=== PATIENT | female | born 1955 | race Asian ===

== ENCOUNTER 2016-11-13 11:27 | Emergency (ER) | payer OTHER ==
[~2016-11-13] VITALS: Ht 152.4 cm; Wt 45.9 kg
[~2016-11-13 11:27] MED LIST: OMEP20TA2 PO; TRAM100T27 PO
[2016-11-13] MEDS ORDERED: ZOLP10 PO (11:39)
[2016-11-13] MEDS ORDERED: IBUP-2070 PO (11:39)
[2016-11-13] MEDS ORDERED: NAPR-58 PO (11:39)
[2016-11-13] MEDS ORDERED: [UNRECOGNIZED DRUG - CODE] PO (11:39)
[2016-11-13] MEDS ORDERED: TraMADol HCL 50 MG TABLET PO ONE (13:30)
[2016-11-13 14:25] VITALS: BP 143/81
== END 2016-11-13 14:49 | disposition home or self-care (01) ==
LOC: EMS 11:29
DX: S09.90XA Unspecified injury of head, initial encounter (principal); M54.2 Cervicalgia; W18.39XA Other fall on same level, initial encounter; Y93.89 Activity, other specified; Y92.89 Other specified places as the place of occurrence of the external cause; Y99.8 Other external cause status
CPT/HCPCS: 70450; 72125; 99284

== ENCOUNTER 2016-11-16 15:46 | Inpatient (IN) | payer OTHER ==
[~2016-11-16] VITALS: Ht 152.4 cm; Wt 46.7 kg
[~2016-11-16 15:46] MED LIST changes: +IBUP-2070 PO; +NAPR-58 PO; +ZOLP10 PO; +[UNRECOGNIZED DRUG - CODE] PO
[2016-11-16] MEDS ORDERED: TRAM50TA4 PO (15:57)
[2016-11-16] MEDS ORDERED: ONDANSETRON HCL 4 MG TABLET PO ONE (18:45)
[2016-11-16] MEDS ORDERED: ONDANSETRON HCL 4 MG/2 ML VIAL IVP PRN (21:15)
[2016-11-16] MEDS ORDERED: 0.9% SODIUM CHLORIDE 10 ML SYRINGE IVP PRN (21:15)
[2016-11-16] MEDS ORDERED: MORPHINE SULFATE 2 MG/ML SYRINGE IVP PRN (21:15)
[2016-11-16] MEDS ORDERED: ACETAMINOPHEN 325 MG TABLET PO PRN ×2 (21:15→21:30)
[2016-11-16] MEDS ORDERED: OxyCODONE HCL/ACETAMINOPHEN 5-325 MG TABLET PO PRN ×2 (21:15→21:30)
[2016-11-16] MEDS ORDERED: MAGNESIUM HYDROXIDE SUSPENSION 30 ML UDCUP PO PRN (21:30)
[2016-11-16] MEDS ORDERED: ALBUTEROL SULFATE 2.5 MG/0.5 ML NEB SOLUTION NEB PRN (21:30)
[2016-11-16 21:35] LABS: BASOPHILS # (AUTO) 0.04 K/uL (0.00-0.20); BASOPHILS % (AUTO) 0.7 % (0.0-2.0); EOSINOPHILS # (AUTO) 0.07 K/uL (0.00-0.70); EOSINOPHILS % (AUTO) 1.22 % (1.0-6.0); HEMATOCRIT 40.3 % (36-46); HEMOGLOBIN 13.8 g/dL (12.0-16.0); MEAN CORPUSCULAR HEMOGLOBIN 30.1 pg (26.0-34.0); MEAN CORPUSCULAR HGB CONC 34.4 G/dL (31.0-37.0); MEAN CORPUSCULAR VOLUME 88 fL (80-100); MONOCYTES # (AUTO) 0.5 K/uL (0.1-1.0); MONOCYTES % (AUTO) 7.3 % (2.0-9.0); NEUTROPHILS # (AUTO) 3.5 K/uL (1.8-7.7); NEUTROPHILS % (AUTO) 57.8 % (40.0-70.0); PLATELET COUNT (AUTO) 185 K/uL (150-450); RED CELL DISTRIBUTION WIDTH 13.2 % (11.5-14.5); WHITE BLOOD COUNT (AUTO) 6.1 K/uL (4.5-11.0)
[2016-11-16 21:44] LABS: APPEARANCE,URINE CLEAR (CLEAR); GLUCOSE, URINE (UA) NEGATIVE (NEGATIVE); KETONES,URINE NEGATIVE (NEGATIVE); LEUKOCYTE ESTERASE ,URINE TRACE (NEGATIVE); OCCULT BLOOD,URINE NEGATIVE (NEGATIVE); PH,URINE 7.5 (5.0-8.0); PROTEIN,URINE NEGATIVE (NEGATIVE)
[2016-11-16 21:45] LABS: ADD UA MICROSCOPIC YES
[2016-11-16 21:51] LABS: ANION GAP 8 mmol/L (8-16); CALCIUM, TOTAL 8.8 mg/dL (8.8-10.5); CARBON DIOXIDE 27 mmol/L (22-29); CHLORIDE 101 mmol/L (98-107); CREATININE 0.78 mg/dL (0.60-1.30); GLOMERULAR FILTR. RATE CALC > 60 mL/min (>60); POTASSIUM 3.5 mmol/L (3.5-5.1); SODIUM SERUM 136 mmol/L (136-145); UREA NITROGEN, BLOOD 11 mg/dL (7-18)
[2016-11-16 21:57] LABS: RBC,URINE None Seen /HPF (0-2)
[2016-11-16 22:14] LABS: ALANINE AMINOTRANSFERASE 29 U/L (12-78); ALBUMIN 3.9 g/dL (3.4-5.0); ASPARTATE AMINOTRANSFERASE 18 U/L (15-37); BILIRUBIN,TOTAL 0.6 mg/dL (0.1-1.0); CREATINE KINASE MB 0.5 ng/mL (0-5); CREATINE KINASE, TOTAL 89 U/L (26-192); TOTAL PROTEIN, SERUM 7.3 g/dL (6.4-8.2)
[2016-11-16 22:16] LABS: B-TYPE NATRIURETIC PEPTIDE 47 pg/mL (0-100)
[2016-11-16 22:46] VITALS: BP 152/90
[2016-11-16] MEDS: AmLODIPine BESYLATE 2.5 MG TABLET PO SCH (23:01)
[2016-11-17 04:05] VITALS: BP 123/80
[2016-11-17 07:28] VITALS: BP 142/79
[2016-11-17] MEDS: PANTOPRAZOLE SODIUM 40 MG DR TABLET PO SCH (08:06)
[2016-11-17] MEDS: DOCUSATE SODIUM 100 MG CAPSULE PO SCH ×2 (08:06→20:14)
[2016-11-17 11:02] VITALS: BP 120/76
[2016-11-17 14:53] VITALS: BP 133/60
[2016-11-17 19:21] VITALS: BP 123/76
[2016-11-17] MEDS: AmLODIPine BESYLATE 2.5 MG TABLET PO SCH (20:14)
[2016-11-18 00:06] VITALS: BP 102/73
[2016-11-18 04:53] VITALS: BP 115/76
[2016-11-18 07:26] VITALS: BP 117/78
[2016-11-18] MEDS: DOCUSATE SODIUM 100 MG CAPSULE PO SCH (08:30)
[2016-11-18] MEDS: PANTOPRAZOLE SODIUM 40 MG DR TABLET PO SCH (08:30)
[2016-11-18 11:56] VITALS: BP 109/73
== END 2016-11-18 16:25 | disposition home or self-care (01) | DRG 55 ==
LOC: EMS 15:47 → 5S 21:25 → 5N 11-17 17:37
PROVIDERS: ADMIT Internal Medicine; ATTEND Internal Medicine
DX: S06.5X0A Traumatic subdural hemorrhage without loss of consciousness, initial encounter (principal); I10 Essential (primary) hypertension; R20.0 Anesthesia of skin; Z91.81 History of falling
CPT/HCPCS: 70450; 70551; 93005; 99285; Q0162

== ENCOUNTER 2018-01-29 12:01 | Emergency (ER) | payer OTHER ==
[~2018-01-29] VITALS: Ht 149.9 cm; Wt 47.7 kg
[~2018-01-29 12:01] MED LIST changes: +CALC1TAB86 PO; -IBUP-2070 PO; -NAPR-58 PO; -OMEP20TA2 PO; -TRAM100T27 PO; +TRAM50TA4 PO; -ZOLP10 PO; +ZOLP10TA7 PO; -[UNRECOGNIZED DRUG - CODE] PO
[2018-01-29] MEDS ORDERED: VERA120 PO (12:15)
[2018-01-29] MEDS ORDERED: GABA-531 PO (12:15)
[2018-01-29 19:13] VITALS: BP 144/76
== END 2018-01-29 19:22 | disposition home or self-care (01) ==
LOC: EMS 12:02
DX: R51 Headache (principal); G47.00 Insomnia, unspecified; Z79.899 Other long term (current) drug therapy; Z87.820 Personal history of traumatic brain injury
CPT/HCPCS: 70450; 99284

== ENCOUNTER 2020-02-17 06:17 | Day surgery (SDC) | payer OTHER ==
[~2020-02-17] VITALS: Ht 152.4 cm; Wt 45.5 kg
[~2020-02-17 06:17] MED LIST changes: -CALC1TAB86 PO; +GABA-1181 PO; -TRAM50TA4 PO; +VERA120 PO; -ZOLP10TA7 PO
[2020-02-17] MEDS ORDERED: SODIUM CHLORIDE 0.9% 1,000 ML ONE (06:22)
[2020-02-17] MEDS ORDERED: SODIUM CHLORIDE 0.9% 1,000 ML IV ONE (06:30)
[2020-02-17 06:43] LABS: COVID AG,FIA SOURCE NASOPHARYNGEAL
[2020-02-17] MEDS ORDERED: TRAM50TA4 PO (07:05)
[2020-02-17] MEDS ORDERED: OMEP20 PO (07:05)
[2020-02-17] MEDS ORDERED: GABA-1216 PO (07:05)
[2020-02-17] MEDS ORDERED: ZOLP-280 PO (07:05)
[2020-02-17] MEDS ORDERED: TENO300 PO (07:05)
[2020-02-17] MEDS ORDERED: MIDAZOLAM HCL 2 MG/2 ML VIAL ONE (07:30)
[2020-02-17] MEDS ORDERED: FentaNYL CITRATE-PF 100 MCG/2 ML VIAL ONE (07:30)
[2020-02-17] MEDS ORDERED: MethylPREDNISolone SOD SUCC 125 MG/2 ML VIAL ONE (08:58)
[2020-02-17] MEDS ORDERED: MethylPREDNISolone SOD SUCC 125 MG/2 ML VIAL IVP ONE (09:00)
[2020-02-17] MEDS ORDERED: LIDOCAINE 4% 50 ML SOLUTION ONE (17:53)
[2020-02-17] MEDS ORDERED: LIDOCAINE 2% 30 ML JELLY ONE (17:53)
[2020-02-17] MEDS ORDERED: ALBUTEROL SULFATE 2.5 MG/0.5 ML NEB SOLUTION NEB ONE (17:53)
[2020-02-17] MEDS ORDERED: BENZOCAINE 20% 50 MCG/SPRAY 57 GM ONE (17:53)
[2020-02-17] MEDS ORDERED: OXYGEN THERAPY IH SCH (20:00)
== END 2020-02-17 10:10 | disposition home or self-care (01) ==
LOC: SURGERY 06:17
PROVIDERS: ATTEND Internal Medicine Critical Care Medicine
DX: J38.4 Edema of larynx (principal); B37.0 Candidal stomatitis
CPT/HCPCS: 31623; 31624; 71045; 87015; 87070; 87101; 87205; 87206; 87220; 87426; 93005; J2250; J2930; J3010; J7030; 88108; 88312; J7613; Z7610

== ENCOUNTER 2021-12-29 05:41 | Day surgery (SDC) | payer MEDICARE, OTHER ==
[~2021-12-29] VITALS: Ht 152.4 cm; Wt 46.3 kg
[~2021-12-29 05:41] MED LIST changes: -GABA-1181 PO; +GABA-1216 PO; +OMEP20 PO; +SODIUM CHLORIDE 0.9% 1,000 ML IV ONE; +TENO300 PO; +TRAM50TA4 PO; -VERA120 PO; +ZOLP-280 PO
[2021-12-29] MEDS ORDERED: LIDOCAINE 4% 50 ML SOLUTION TP ONE (05:42)
[2021-12-29] MEDS ORDERED: LIDOCAINE 2% 11 ML JELLY TP ONE (05:42)
[2021-12-29] MEDS ORDERED: BENZOCAINE 20% 50 MCG/SPRAY 57 GM TP ONE (05:42)
[2021-12-29] MEDS ORDERED: SODIUM CHLORIDE 0.9% 1,000 ML ONE (06:28)
[2021-12-29 06:40] LABS: COVID AG,FIA SOURCE NASAL SWAB
[2021-12-29] MEDS ORDERED: TENO300 PO (07:14)
[2021-12-29] MEDS ORDERED: TENO25TA PO (07:14)
[2021-12-29] MEDS ORDERED: ESCI-8 PO (07:14)
[2021-12-29] MEDS ORDERED: GABA-1181 PO (07:14)
[2021-12-29] MEDS ORDERED: FentaNYL CITRATE PF 100 MCG/2 ML VIAL ONE (08:20)
[2021-12-29] MEDS ORDERED: MIDAZOLAM HCL 5 MG/ML VIAL ONE (08:20)
[2021-12-29] MEDS ORDERED: MethylPREDNISolone SOD SUCC 125 MG/2 ML VIAL ONE (09:04)
[2021-12-29] MEDS ORDERED: MethylPREDNISolone SOD SUCC 125 MG/2 ML VIAL IVP ONE (09:30)
[2021-12-29] MEDS ORDERED: OXYGEN THERAPY IH SCH (20:00)
== END 2021-12-29 11:05 | disposition home or self-care (01) ==
LOC: SURGERY 05:41
PROVIDERS: ATTEND Internal Medicine Critical Care Medicine
DX: J38.4 Edema of larynx (principal); B37.0 Candidal stomatitis; Z98.890 Other specified postprocedural states; Z79.899 Other long term (current) drug therapy
CPT/HCPCS: 31623; 88112; 87206; 87101; 87220; 87070; 87015; 88305; 88312; 31624; 71045; 87426; J3010; J2930; J2250; Q9967; J7030; C9803; Z7610

== ENCOUNTER 2023-09-04 06:29 | Day surgery (SDC) | payer MEDICARE, OTHER ==
[~2023-09-04 06:29] MED LIST changes: +ESCI-8 PO; +GABA-1181 PO; -GABA-1216 PO; -OMEP20 PO; -SODIUM CHLORIDE 0.9% 1,000 ML IV ONE; +SODIUM CHLORIDE 0.9% 1,000 ML ONE; +TENO25TA PO; -TRAM50TA4 PO; -ZOLP-280 PO
[2023-09-04] MEDS ORDERED: FLUMAZENIL 0.1 MG/ML 5 ML VIAL IVP ONE (07:36)
[2023-09-04] MEDS ORDERED: EPINEPHrine 1:10,000 [1 MG/10 ML] SYRINGE ONE (07:36)
[2023-09-04] MEDS ORDERED: ATROPINE SULFATE 0.1 MG/ML 10 ML SYRINGE IVP ONE (07:36)
[2023-09-04] MEDS ORDERED: NALOXONE HCL 0.4 MG/ML VIAL ONE (07:36)
[2023-09-04] MEDS ORDERED: DiphenhydrAMINE HCL 50 MG/ML VIAL ONE (07:36)
[2023-09-04] MEDS ORDERED: SODIUM TETRADECYL SULFATE 3% 60 MG/2 ML VIAL IVP ONE (07:36)
[2023-09-04] MEDS ORDERED: MIDAZOLAM HCL 2 MG/2 ML VIAL ONE (07:37)
[2023-09-04] MEDS ORDERED: FentaNYL CITRATE PF 100 MCG/2 ML VIAL ONE (07:37)
[2023-09-04] MEDS: SODIUM CHLORIDE 0.9% 1,000 ML IV ONE (08:52)
[2023-09-04 09:20] VITALS: PULSE 71; RESP 18; O2SAT 98
[2023-09-04] MEDS ORDERED: MethylPREDNISolone SOD SUCC 125 MG/2 ML VIAL IVP ONE (09:30)
[2023-09-04] MEDS ORDERED: MethylPREDNISolone SOD SUCC 125 MG/2 ML VIAL ONE (09:47)
[2023-09-04] MEDS: MethylPREDNISolone SOD SUCC 125 MG/2 ML VIAL IVP ONE (10:25)
[2023-09-04] MEDS ORDERED: BENZOCAINE 20% 50 MCG/SPRAY 57 GM ONE ×2 (12:00)
[2023-09-04] MEDS ORDERED: ALBUTEROL SULFATE 2.5 MG/0.5 ML NEB SOLUTION NEB ONE ×2 (12:00)
[2023-09-04] MEDS ORDERED: LIDOCAINE 4% 50 ML SOLUTION ONE ×2 (12:00)
[2023-09-04] MEDS ORDERED: LIDOCAINE 2% 11 ML JELLY ONE ×2 (12:00)
== END 2023-09-04 11:40 | disposition home or self-care (01) ==
LOC: SURGERY 06:29
PROVIDERS: ATTEND Internal Medicine Critical Care Medicine
DX: J38.4 Edema of larynx (principal); B37.0 Candidal stomatitis; Z98.890 Other specified postprocedural states
CPT/HCPCS: 31623; 87206; 87101; 87220; 87070; 88108; 31624; 71045; 87015; J3010; J2250; J2919; Q9967; J7030; J0171; J0461; J1200; J2310; J3490; J7613; Z7610

== ENCOUNTER → 2025-02-28 | Day surgery (SDC) | payer MEDICARE, OTHER ==
[~2025-02-28] VITALS: Ht 153.7 cm; Wt 50.0 kg
[~2025-02-28] MED LIST changes: +ALBUTEROL SULFATE 2.5 MG/0.5 ML NEB SOLUTION NEB ONE; +BENZOCAINE 20% 50 MCG/SPRAY 57 GM ONE; +FentaNYL CITRATE PF 100 MCG/2 ML VIAL ONE; +LIDOCAINE 2% 11 ML JELLY ONE; +LIDOCAINE 4% 50 ML SOLUTION ONE; +MIDAZOLAM HCL 2 MG/2 ML VIAL ONE
[2025-02-28] MEDS: SODIUM CHLORIDE 0.9% 1,000 ML IV ONE (08:42)
[2025-02-28 10:30] VITALS: PULSE 86; RESP 16; O2SAT 100
== END | disposition home or self-care (01) ==
LOC: SDS 06:53
PROVIDERS: ATTEND Internal Medicine Critical Care Medicine
DX: R05.3 Chronic cough (principal); R06.1 Stridor; J84.10 Pulmonary fibrosis, unspecified; J98.8 Other specified respiratory disorders; J98.09 Other diseases of bronchus, not elsewhere classified; R04.2 Hemoptysis; M19.90 Unspecified osteoarthritis, unspecified site; Z98.890 Other specified postprocedural states
CPT/HCPCS: 31623; 87206; 87101; 87220; 87070; 88108; 31624; 71045; 87015; J3010; J2250; J2919; J7030; J7613; Z7610